=== PATIENT | male | born 2000 | race Caucasian/White ===

== ENCOUNTER 2024-10-05 10:39 | Outpatient (CLI) | payer BC, SELFPAY ==
--- NOTE | ~2024-10-05 | XR_ITS ---
EXAMINATION: XR chest 2V, XR thoracic spine 2V DATE: 10/05/2024 11:14 INDICATION: Right mid to lower rib pain TECHNIQUE: 1. PA and lateral views of the chest were obtained. 2. AP and lateral views of the thoracic spine were obtained. COMPARISON: None FINDINGS: Chest: The lungs are clear with no focal airspace opacities, pulmonary edema, pleural effusion or pneumothor ax. The cardiomediastinal silhouette is normal. Visualized bones and soft tissues are unremarkable. Thoracic spine: Alignment is normal. Vertebral body heights are normal. Minimal to mild disc height loss at a few lev els the mid and lower thoracic spine. Posterior elements are unremarkable. IMPRESSION: 1. No acute cardiopulmonary disease. 2. Minimal to mild thoracic spondylosis. Reviewed, dictated and finalized at location A. ER APPLICATOR IMPRESSION: 1. No acute cardiopulmonary disease. 2. Minimal to mild thoracic spondylosis.
== END 2024-10-05 10:40 | disposition home or self-care (01) ==
DX: S23.41XA Sprain of ribs, initial encounter (principal); X58.XXXA Exposure to other specified factors, initial encounter
CPT/HCPCS: 71046; 72070